=== PATIENT | female | born 1950 | race Caucasian/White ===

== ENCOUNTER 2020-09-02 19:29 | Inpatient (IN) | payer MEDICARE, MEDICAID ==
[~2020-09-02] VITALS: Ht 167.6 cm; Wt 49.9 kg
[2020-09-02 19:34] VITALS: BP 170/89
[2020-09-02] MEDS ORDERED: ZESTRIL40 MG PO (19:42)
[2020-09-02] MEDS ORDERED: TRAZODONE HCL50 MG PO (19:43)
[2020-09-02] MEDS ORDERED: PROAIR HFA8.5 GM INH (19:44)
[2020-09-02] MEDS ORDERED: SYMBICORT160 MCG/4. INH (19:44)
[2020-09-02 20:27] LABS: HEMATOCRIT 37.5 % (37.0-47.0); HEMOGLOBIN 12.5 gm/dL (12.0-15.0); MCH 26.6 pg (26.0-34.0); MCHC 33.2 g/dL (28.0-37.0); MCV 80.1 fL (80.0-100.0); MPV 7.8 fl. (7.2-11.1); NUCLEATED RBCS 0 /100WBC; PLATELET COUNT* 356 thou/uL (150-400); RBC 4.69 mil/uL (4.20-5.00); RDW-CV 14.3 % (10.5-14.5); WBC 12.9 thou/uL (4.0-11.0)
[2020-09-02 20:36] LABS: CALCIUM 9.5 mg/dL (8.5-10.1); CREATININE 0.8 mg/dL (0.6-1.3); POTASSIUM 4.2 mmol/L (3.5-5.1)
[2020-09-02 20:47] LABS: ALBUMIN 3.4 g/dL (3.4-5.0); MAGNESIUM 1.6 mg/dL (1.8-2.4); TOTAL BILIRUBIN 0.6 mg/dL (<0.1-1.0); TOTAL PROTEIN 7.4 g/dL (6.4-8.2)
[2020-09-02 20:52] LABS: ABSOLUTE LYMPHOCYTES 0.6 thou/uL (0.8-5.3); ABSOLUTE MONOCYTES 0.4 thou/uL (0.0-1.2); ABSOLUTE NEUTROPHILS 11.9 thou/uL (1.6-8.1); PLATELET ESTIMATE ADEQUATE
[2020-09-02 21:36] LABS: BE -1.8 mmol/L (-2 to +3); PCO2 42.3 mmHg (35.0-45.0); PO2 72.7 mmHg (75.0-100.0); pH 7.364 (7.340-7.450)
[2020-09-02 22:15] VITALS: BP 147/84
[2020-09-03 03:50] VITALS: BP 156/74
[2020-09-03 07:45] VITALS: BP 142/71
--- NOTE | 2020-09-03 11:34 | EKG ---
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[place] : 1950 Requested By: Deya Hernandez Order Number: [id number] MD: Sav Torres Measurements Intervals [place] Rate: 125 P: 86 DE: 140 QRS: 32 QRSD: 99 T: 87 QT: 307 QTc: 443 Interpretive Statements Sinus tachycardia LAE, consider biatrial enlargement LVH with secondary repolarization abnormality Anterior Q waves, possibly due to LVH Artifact in lead(s) I,II,III,aVR,aVL,V2,V3,V4,V5,V6 No previous ECG available for comparison Electronically Signed On 09-03-2020 11:34:09 CDT by Sav Torres [email or web address] <ELECTRONICALLY SIGNED> By: Sav Torres MD, [facility] 09/03/20 1134 32 32 Sav Torres MD, [facility] /EPI
[2020-09-03 12:00] VITALS: BP 158/83
[2020-09-03 16:00] VITALS: BP 150/83
[2020-09-03 20:00] VITALS: BP 179/86
[2020-09-03] MEDS ORDERED: DULOXETINE HCL60 MG PO (20:50)
[2020-09-04 05:24] LABS: HEMATOCRIT 33.3 % (37.0-47.0); HEMOGLOBIN 11.1 gm/dL (12.0-15.0); MCH 26.7 pg (26.0-34.0); MCHC 33.4 g/dL (28.0-37.0); MCV 79.8 fL (80.0-100.0); RBC 4.18 mil/uL (4.20-5.00); RDW-CV 14.6 % (10.5-14.5); WBC 8.8 thou/uL (4.0-11.0)
[2020-09-04 05:34] LABS: CALCIUM 9.2 mg/dL (8.5-10.1); CREATININE 0.8 mg/dL (0.6-1.3); POTASSIUM 4.7 mmol/L (3.5-5.1)
[2020-09-04 08:00] VITALS: BP 129/67
[2020-09-04] MEDS ORDERED: BENZONATATE100 MG PO (09:58)
[2020-09-04] MEDS ORDERED: METOPROLOL TART25 MG PO (10:00)
[2020-09-04] MEDS ORDERED: LEVOFLOXACIN500 MG PO (10:11)
[2020-09-04] MEDS ORDERED: PREDNISONE10 MG PO (10:11)
[2020-09-04 11:11] VITALS: BP 129/67
[2020-09-04 12:01] VITALS: BP 131/63
[2020-09-04 14:57] VITALS: BP 129/67
== END 2020-09-04 15:40 | disposition home or self-care (01) | DRG 177 ==
LOC: M.ERS 19:29 → M.TBA-ER 21:17 → M.2W 22:27
PROVIDERS: Emergency Medicine; Internal Medicine; ADMIT Family Medicine; ATTEND Family Medicine
DX: J15.6 Pneumonia due to other Gram-negative bacteria (principal); J96.01 Acute respiratory failure with hypoxia; J44.0 Chronic obstructive pulmonary disease with (acute) lower respiratory infection; J44.1 Chronic obstructive pulmonary disease with (acute) exacerbation; J98.11 Atelectasis; Z20.822 Contact with and (suspected) exposure to COVID-19; E83.42 Hypomagnesemia; I10 Essential (primary) hypertension; Z79.899 Other long term (current) drug therapy

== ENCOUNTER 2020-12-21 16:07 | Emergency (ER) | payer MEDICARE, MEDICAID ==
[~2020-12-21] VITALS: Ht 165.1 cm; Wt 49.9 kg
[~2020-12-21 16:07] MED LIST: BENZONATATE100 MG PO; DULOXETINE HCL60 MG PO; LEVOFLOXACIN500 MG PO; METOPROLOL TART25 MG PO; PREDNISONE10 MG PO; PROAIR HFA8.5 GM INH; SYMBICORT160 MCG/4. INH; TRAZODONE HCL50 MG PO; ZESTRIL40 MG PO
[2020-12-21 16:38] LABS: ABSOLUTE LYMPHOCYTES 1.4 thou/uL (0.8-5.3); ABSOLUTE MONOCYTES 0.4 thou/uL (0.0-1.2); ABSOLUTE NEUTROPHILS 5.4 thou/uL (1.6-8.1); BASOPHILS 0.6 %; EOSINOPHILS 0.6 %; HEMATOCRIT 38.5 % (37.0-47.0); HEMOGLOBIN 12.8 gm/dL (12.0-15.0); LYMPHOCYTES 18.7 %; MCH 27.1 pg (26.0-34.0); MCHC 33.3 g/dL (28.0-37.0); MCV 81.3 fL (80.0-100.0); MONOCYTES 5.9 %; MPV 7.9 fl. (7.2-11.1); NUCLEATED RBCS 0 /100WBC; PLATELET COUNT* 258 thou/uL (150-400); POLYS 74.2 %; RBC 4.73 mil/uL (4.20-5.00); RDW-CV 13.6 % (10.5-14.5); WBC 7.3 thou/uL (4.0-11.0)
[2020-12-21 17:20] LABS: CALCIUM 9.4 mg/dL (8.5-10.1); CREATININE 0.8 mg/dL (0.6-1.3); POTASSIUM 4.7 mmol/L (3.5-5.1)
[2020-12-21 17:24] LABS: ALBUMIN 3.9 g/dL (3.4-5.0); TOTAL BILIRUBIN 0.5 mg/dL (<0.1-1.0); TOTAL PROTEIN 7.1 g/dL (6.4-8.2)
--- NOTE | 2020-12-21 17:34 | EKG ---
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 : 1950 Requested By: Armando Read Order Number: [id number] MD: Sav Torres Measurements Intervals [place] Rate: 96 P: 95 VA: 126 QRS: 2 QRSD: 87 T: 86 QT: 323 QTc: 409 Interpretive Statements Sinus rhythm Right atrial enlargement Anterior infarct, old Compared to ECG 09/02/2020 19:33:37 Sinus tachycardia no longer present Left ventricular hypertrophy no longer present Electronically Signed On 12-21-2020 17:34:00 CDT by Sav Torres [email or web address] <ELECTRONICALLY SIGNED> By: Sav Torres MD, FACC 12/21/20 1734 1619 1619 Sav Torres MD, [facility] /EPI
[2020-12-21] MEDS ORDERED: PROAIR HFA8.5 GM INH (17:47)
[2020-12-21] MEDS ORDERED: DOXYCYCLINE 10100 MG PO ×2 (17:47→17:48)
[2020-12-21] MEDS ORDERED: PREDNISONE 20 M20 M1 PO (17:47)
[2020-12-21 21:58] VITALS: BP 134/77
== END 2020-12-21 21:59 | disposition home or self-care (01) ==
LOC: M.ERS 16:07
PROVIDERS: Emergency Medicine
DX: J44.1 Chronic obstructive pulmonary disease with (acute) exacerbation (principal); Z20.822 Contact with and (suspected) exposure to COVID-19; F17.210 Nicotine dependence, cigarettes, uncomplicated; Z90.711 Acquired absence of uterus with remaining cervical stump; Z79.899 Other long term (current) drug therapy